=== PATIENT | female | born 1965 | race African-American/Black ===

== ENCOUNTER 2018-05-26 21:22 | Emergency (ER) | payer BC ==
[~2018-05-26] VITALS: Ht 160 cm; Wt 87.6 kg
--- OUTSIDE RECORDS SUMMARY | 2018-05-26 21:25 | XMS REPORT ---
Author Author [facility] Address Unknown Phone Unavailable Care Team Providers Care Watch Dial Printer Name Role Phone Unavailable Unavailable Problems This patient has no known problems. Allergies, Adverse Reactions, Alerts This patient has no known allergies or adverse reactions. Medications This patient has no known medications. Results Test Description Test Time Test Comments Text Results Atomic Results Result Comments SCR MAMM BILATERAL ROSITA CAD DIGITAL 2018-01-22 17:32:21 - SCR MAMM BILATERAL ROSITA CAD DIGITALBILATERAL DIGITAL SCREENING MAMMOGRAM 3D/2D WITH CAD: 01/22/2018CLINICAL: Asymptomatic. Digital breast tomosynthesis was performed in addition to routine CC and MLO views. Current mammographic images were evaluated by either a [employer] M-Vu or a [employer] CAD (computer aided detection system). Comparison is made to exams dated 01/20/2017 mammogram, mammogram, and 01/11/2015 mammogram - [facility]. There are scattered fibroglandular tissues in both breasts. No suspicious mass, architectural distortion, malignant type calcification, or lymph node abnormality detected. Breast architecture is stable compared to prior exams.IMPRESSION: NEGATIVEThere is no mammographic evidence of malignancy. Resume annual screening mammography in one year. Laury aguila/penrad:01/22/2018 17:32:21 Change Management Administrator: Tiffany RICARDO, [facility]: BIRADS 1-2 Normal Mammogram BI-RADS: 1 Negative
--- OUTSIDE RECORDS SUMMARY | 2018-05-26 21:25 | XMS REPORT | Clinical Summary ---
Author Author RICHAR [facility] Address Unknown Phone Unavailable Care Team Providers Care Dry Mixer Name Role Phone Saida Padron MD PCP Unavailable Allergies No Known Allergies Medications End Date Status Medication Sig Dispensed Refills Start Date Active ibuprofen (ADVIL,MOTRIN) Take 200 mg 0 200 MG tablet by mouth every 6 (six) hours as needed for Pain. Active Problems Problem Noted Date Prediabetes 11/15/2015 BMI 31.0-31.9,adult 08/28/2014 Obesity, Class I, BMI 30-34.9 06/23/2014 History of mammogram 12/07/2013 Overview: Dr. Walters ([place]): H/O colonoscopy with polypectomy 03/09/2013 Overview: in 03/2013 (first colonoscopy): Dr. Pozo ([place]): Due in 2019 Immunizations Name Dates Previously Given Next Due Tdap 06/23/2014 Family History Medical History Relation Name Comments Diabetes Father Hypertension Father Breast cancer Maternal Grandmother Breast cancer Mother Cancer Mother Relation Name Status Comments Father Maternal Grandmother Mother Social History Date Tobacco Use Types Packs/Day Years Used Quit: 03/09/1988 Former Smoker Cigarettes 0.2 5 Smokeless Tobacco: Never Used Tobacco Cessation: Counseling Given: Yes Alcohol Use Drinks/Week oz/Week Comments Yes 1 Glasses of 0.6 wine Sex Assigned at Date Recorded Not on file Industry Job Start Date Occupation Not on file Not on file Not on file Travel End Travel History Travel Start No recent travel history available. Last Filed Vital Signs Not on file Plan of Treatment Health Maintenance Due Date Last Done Comments INFLUENZA VACCINE 12/07/2017 Results Not on fileafter 05/25/2017 Insurance Payer Benefit Subscriber ID Type Phone Address Plan / Group BLUE CROSS[employer] BCBS PPO xxxxxxxxxxxx PPO [phone] [address] [place] [address] CHOICE
[2018-05-26] MEDS ORDERED: NITROGLYCERIN 0.4 MG SUBL SL ONE (22:00)
--- NOTE | 2018-05-26 23:03 | Diagnostic Imaging Report ---
EXAMINATION: CT of the chest with contrast, PE protocol. TECHNIQUE: Spiral CT images of the chest were performed from the lung apices through the level of the adrenal glands after the IV administration of 100 cc of Isovue 370. Thin section reconstructions were obtained with special concentration on the pulmonary arteries. COMPARISON: <none> CLINICAL HISTORY:Chest pressure, shortness of breath for 2 days DISCUSSION: Lungs: No filling defects are identified in the main, right or left pulmonary arteries to their segmental levels, to suggest pulmonary embolism. No pulmonary nodules, masses or consolidation. Airways are clear, without other bronchial lesions. Pleura: <There is no evidence of pleural effusion or pneumothorax.> Heart and mediastinum: Thyroid gland is enlarged. No focal lesions are identified in this exam. Heart size is normal. No pericardial effusion. Aorta is nonaneurysmal. Main pulmonary artery is normal in caliber, measuring 2.8 cm. Lymph nodes: No mediastinal, hilar or axillary adenopathy. Abdomen: Limited contrast enhanced views of the liver and spleen, pancreas and bilateral kidneys are unremarkable. Adrenal glands are unremarkable. Bones and soft tissues: No acute bony abnormalities. No aggressive lytic lesions. Soft tissues are unremarkable. IMPRESSION: 1. No CT evidence of pulmonary embolism. 2. Essentially clear lungs. 3. Enlarged thyroid gland. Correlate with serum TSH. Signed by: Dr. Lei Garcia M.D. on 05/26/2018 11:00 PM
[2018-05-27 00:23] VITALS: BP 122/80
== END 2018-05-27 00:18 | disposition home or self-care (01) ==
LOC: FSED 21:22
DX: R05 Cough (principal); B34.9 Viral infection, unspecified
CPT/HCPCS: 71275; 80053; 82553; 84484; 85025; 93005; 99284